=== PATIENT | male | born 1985 | race Caucasian/White ===

== ENCOUNTER 2016-12-03 11:48 | Emergency (ER) | payer SELFPAY ==
[~2016-12-03] VITALS: Ht 175.3 cm; Wt 62.0 kg
[~2016-12-03 11:48] MED LIST: NAPR500T PO; TRAM50TA PO
[2016-12-03 11:51] VITALS: BP 158/94; PULSE 84; RESP 18; TEMP 97.8; O2SAT 97
--- NOTE | 2016-12-03 11:59 | PD ---
Physical Exam Date Seen by Provider: December 03, 2016 Time Seen by Provider: 11:54 Narrative 31 y/o male with Hx left wrist fracture seen by Dr. Norwood and was recommended to have CT scan for surgery. Patient is currently without insurance and waiting on Patient Assistance. Patient originally seen at an Urgent Care on November 17 s/p skateboard accident. pain is 8/10/ denies numbness. Patient hoping for CT and Surgery. V/S Stable Awaiting Bed Placement. Data Data Last Documented VS Vital Signs Date Time Temp Pulse Resp B/P Pulse Ox O2 Delivery O2 Flow Rate FiO2 12/03/16 11:51 97.8 84 18 158/94 97 MDM Medical Record Reviewed: Yes Supervised Visit with ZAYRA: Yes Condition: Stable Reggie Sanchez December 03, 2016 11:59
--- NOTE | 2016-12-03 14:21 | PD ---
HPI Chief Complaint: Injury Time Seen by Provider: 12:08 Travel History International Travel<30 days: No Contact w/Intl Traveler<30days: No Traveled to known affect area: No History of Present Illness HPI 31-year-old man presents emergency department with known distal radius fracture , need CT for Dr. Norwood. Unable to arrange it as an outpatient, its been about a week or so. Complains of some pain and swelling. Doing otherwise well. History Past Medical History Medical History: Denies Significant Hx Past Surgical History Surgical History: No Previous Surgery Social History Alcohol Use: No Tobacco Use: No Allergies-Medications (Allergen,Severity, Reaction): Coded Allergies: No Known Allergies (Unverified , 12/03/16) Reported Meds & Prescriptions Reported Meds & Active Scripts Active Reported Tramadol (Tramadol HCl) 50 Mg Tab 50 Mg PO Q8H PRN Naproxen 500 Mg Tab 500 Mg PO BID Review of Systems Except as stated in HPI: all other systems reviewed are Neg Physical Exam Narrative GENERAL: Well-appearing 31 year-old woman, no acute distress. SKIN: Warm and dry. CARDIOVASCULAR: Warm and well perfused. RESPIRATORY: Normal rate and effort. MUSCULOSKELETAL: Left wrist is in a splint. He has some swelling. Radial/ shoulder/median nerve function is intact. Good perfusion. NEUROLOGICAL: Awake and alert. No gross deficits. Data Data Last Documented VS Vital Signs Date Time Temp Pulse Resp B/P Pulse Ox O2 Delivery O2 Flow Rate FiO2 12/03/16 11:51 97.8 84 18 158/[address] Wrist W/O Contrast (12/03/16 ) MDM Medical Decision Making Medical Screen Exam Complete: Yes Emergency Medical Condition: Yes Differential Diagnosis Wrist fracture, Narrative Course 31-year-old man is a fracture left distal radius, needs a CT scan. Labrum follow-up with Dr. Norwood. Diagnosis Primary Impression: Fracture of left distal radius Additional Instructions: Follow-up with a hand surgeon as discussed. Return to the emergency department for any new or worsening symptoms. Med/Other Pt SpecificInfo: No Change to Meds Disposition: 01 DISCHARGE HOME Condition: Stable Darrion Johansen MD December 03, 2016 14:20
--- NOTE | 2016-12-03 14:39 | RADRPT ---
EXAM DATE/TIME: 12/03/2016 13:42 [facility] COMPARISON: No previous studies available for comparison. INDICATIONS : Evaluate fracture left wrist. RADIATION DOSE: 13.29 CTDIvol (mGy) MEDICAL HISTORY : None SURGICAL HISTORY : None. ENCOUNTER: Initial ACUITY: 1 day PAIN SCALE: 4/10 LOCATION: Left Wrist TECHNIQUE: Volumetric scanning of the wrist was performed. Using automated exposure control and adjustment of t he mA and/or kV according to patient size, radiation dose was kept as low as reasonably achievable to obtain optimal diagnostic quality images. FINDINGS: There is a mildly comminuted fracture deformity involving the distal radius with multiple fractu re lines extending into the radiocarpal joint. There is mild distraction of several of the fractures measuring up to several millimeters with no abnormal angulation. There is mild depression of several fracture fragments several millimeters. The carpus is intact and in normal alignment. The visualized portions of metacarpals are intact as well. The distal ulna is intact with no evidence of fracture. T here is soft tissue swelling on the wrist. CONCLUSION: Comminuted fracture of the distal radius. Tiago Martinez MD on December 03, 2016 at 14:33 Board Certified Radiologist. This report was verified electronically.
== END 2016-12-03 14:50 | disposition home or self-care (01) ==
LOC: NEPD 11:48
DX: S52.502D Unspecified fracture of the lower end of left radius, subsequent encounter for closed fracture with routine healing (principal); Y93.51 Activity, roller skating (inline) and skateboarding
CPT/HCPCS: 73200; 99284